=== PATIENT | female | born 1935 | race Caucasian/White ===

== ENCOUNTER → 2018-09-06 | Outpatient (CLI) | payer MEDICARE, OTHER ==
[~2018-09-06] MED LIST: DIATRIZOATE MEGL/DIATRIZOA SOD 30 ML BTL PO ONE; IOPAMIDOL 370 MG/ML 200 ML INFUS..BTL INJ ONE; SODIUM CHLORIDE 0.9% 50ML 50 ML ONE
[2018-09-06 13:01] LABS: BLOOD UREA NITROGEN 17 mg/dL (7-26); BUN/CREATININE RATIO 21 (6-25); EST GLOMERULAR FILTRATION RATE > 60 ML/MIN (60-)
--- NOTE | 2018-09-06 14:06 | Diagnostic Imaging Report ---
EXAMINATION: CT of the abdomen and pelvis with contrast. TECHNIQUE: Spiral CT images of the abdomen and pelvis were performed from the lung bases to the lesser trochanters after the intravenous administration of 100 cc of Isovue-370 and the oral administration of Gastroview. Coronal and sagittal reformatted images were obtained. COMPARISON: None. CLINICAL HISTORY:Constipation, abdominal pain DISCUSSION: ABDOMEN/PELVIS: LOWER THORAX:Juxtapleural reticular opacities in the lung bases may reflect atelectasis or age-related fibrotic changes. No pleural or pericardial effusion. HEPATOBILIARY: 2.8 cm cyst with a single thin internal septation in segment 4 seen on series 2 image 19. Additional subcentimeter hypoattenuating lesions throughout the liver, too small to further characterize but likely represent additional small cysts. The gallbladder is unremarkable. SPLEEN: No splenomegaly. PANCREAS: No focal masses or ductal dilatation. ADRENALS: No adrenal nodules. KIDNEYS/URETERS: Scattered bilateral nonobstructing renal calculi measure up to 3 mm on the right and 6 mm on the left. No solid renal mass lesion. No hydronephrosis. PELVIC ORGANS/BLADDER: Urinary bladder is unremarkable. The uterus is not identified and has presumably been resected. No adnexal mass. PERITONEUM/RETROPERITONEUM: No ascites. No pneumoperitoneum. LYMPH NODES: No pelvic sidewall, retroperitoneal, or mesenteric lymphadenopathy. VESSELS: There is atherosclerotic calcification of the abdominal aorta, major branch vessels, and iliac arterial systems without aneurysmal dilatation. Portal vein and splenic vein are patent. GI TRACT: The large bowel shows no evidence of distention or wall thickening. Innumerable diverticula are identified along the course of the colon, at highest concentration along the sigmoid, without adjacent inflammatory change. The appendix is normal. Prominence of the gastric rugal folds is likely a consequence of underdistention. No small bowel dilatation to suggest obstruction. BONES AND SOFT TISSUE: No osseous destructive lesions. Degenerative disc changes and facet arthropathy of the lumbar spine. No focal soft tissue abnormalities. IMPRESSION: No acute intra-abdominal or pelvic CT abnormalities. Minimally complex hepatic cyst versus 2 adjacent simple cysts divided by a thin internal septation. A follow-up CT scan of the abdomen with contrast in 6-12 months is suggested to assess for stability. Bilateral nonobstructing renal calculi. Large bowel diverticulosis without findings of diverticulitis. Atherosclerotic vascular disease. Signed by: Dr. Link Garcia M.D. on 09/06/2018 2:02 PM
== END ==
LOC: CT 11:51
PROVIDERS: ATTEND Internal Medicine Gastroenterology
DX: K59.00 Constipation, unspecified (principal); R63.0 Anorexia; R63.4 Abnormal weight loss
CPT/HCPCS: 36415; 74177; 82565; 84520; Q9967